=== PATIENT | female | born 1965 | race American Indian/Alaskan Native ===

== ENCOUNTER 2019-10-09 12:05 | Emergency (ER) | payer OTHER ==
[~2019-10-09] VITALS: Ht 154.9 cm; Wt 99.8 kg
[~2019-10-09 12:05] MED LIST: ALBU90OI INH; BENZ100A PO; CYCL10 PO; DEXA2 PO; Dexamethasone4 MG PO; GUAI120S1 PO; HYDACE10B PO; HYDACE5 PO; HYDR1TAB94 PO; LEVSOD100; LEVSOD137 PO; LEVSOD150; MIGRAINE RELIE1 EACH PO; NAPR500 PO; Norco 5-325 Ta1 EACH PO; OMEP40CA12 PO; OXYACE5T PO; PRED10 PO; PROM25 PO; RXCODACET PO; SULTRIDS PO; Synthroid175 MCG PO; TRAM50 PO; TRAZ100 PO
[2019-10-09] MEDS ORDERED: LIDO700A20 TOP (13:15)
[2019-10-09] MEDS ORDERED: Robaxin-750750 MG PO (13:15)
== END 2019-10-09 13:22 | disposition home or self-care (01) ==
LOC: ER 12:05
DX: M54.9 Dorsalgia, unspecified (principal); E03.9 Hypothyroidism, unspecified; Z87.891 Personal history of nicotine dependence; Z88.0 Allergy status to penicillin; Z88.8 Allergy status to other drugs, medicaments and biological substances; Z79.899 Other long term (current) drug therapy; Z79.82 Long term (current) use of aspirin
CPT/HCPCS: 99283

== ENCOUNTER 2019-12-06 17:59 | Emergency (ER) | payer OTHER ==
[~2019-12-06] VITALS: Ht 157.5 cm; Wt 85.3 kg
[~2019-12-06 17:59] MED LIST changes: +LIDO700A20 TOP; +Robaxin-750750 MG PO
[2019-12-06 18:51] LABS: BASOPHILS ABSOLUTE AUTO 0.09 K/mm3 (0.00-0.23); BASOPHILS PERCENT AUTO 1 % (0-2); EOSINOPHILS ABSOLUTE AUTO 0.23 K/mm3 (0.00-0.68); EOSINOPHILS PERCENT AUTO 2 % (0-6); Hematocrit 37.9 % (33.0-51.0); Hemoglobin 12.4 g/dL (11.5-16.0); IMMATURE GRAN ABSOLUTE AUTO 0.14 K/mm3 (0.00-0.10); IMMATURE GRAN PERCENT AUTO 1 % (0-1); LYMPHOCYTES ABSOLUTE AUTO 2.14 K/mm3 (0.84-5.20); LYMPHOCYTES PERCENT AUTO 18 % (21-46); MONOCYTES ABSOLUTE AUTO 0.39 K/mm3 (0.16-1.47); MONOCYTES PERCENT AUTO 3 % (4-13); Mean Corpuscular HGB 32.1 pg (26.0-34.0); Mean Corpuscular HGB Conc 32.7 g/dL (31.5-36.5); Mean Corpuscular Volume 98 fL (80-100); Mean Platelet Volume 9.2 fL (9.1-12.4); NEUTROPHILS ABSOLUTE AUTO 9.04 K/mm3 (1.96-9.15); NEUTROPHILS PERCENT AUTO 75 % (41-73); Platelet Count 284 K/mm3 (150-400); RDW Coefficient Variation 14.6 % (11.7-14.2); Red Blood Cell Count 3.86 M/mm3 (3.80-5.20); White Blood Cell Count 12.03 K/mm3 (4.00-11.30)
[2019-12-06 19:09] LABS: Albumin, Blood 3.7 g/dL (3.4-5.0); Bilirubin, Total 0.2 mg/dL (0.1-1.0); Bun/Creatinine Ratio 11.3 (12.0-20.0); Calcium, Blood 8.8 mg/dL (8.5-10.1); Creatinine, Blood 1.24 mg/dL (0.40-1.00); Globulin, Blood 3.6 g/dL (2.2-4.0); Potassium, Blood 3.8 mmol/L (3.5-5.5); Total Protein, Blood 7.3 g/dL (6.4-8.2)
[2019-12-06] MEDS ORDERED: SYNTHROID150 MC1 PO (20:53)
== END 2019-12-06 21:18 | disposition home or self-care (01) ==
LOC: ER 17:59
PROVIDERS: Physician Assistant
DX: E03.9 Hypothyroidism, unspecified (principal)
CPT/HCPCS: 36415; 80053; 83880; 85025; 99283

== ENCOUNTER 2019-12-26 10:02 | Emergency (ER) | payer OTHER ==
[~2019-12-26] VITALS: Ht 154.9 cm; Wt 108.0 kg
[~2019-12-26 10:02] MED LIST changes: +SYNTHROID150 MC1 PO
[2019-12-26] MEDS ORDERED: SYNTHROID150 MC1 PO (10:51)
[2019-12-26] MEDS ORDERED: TIZA4 PO (10:53)
[2019-12-26 11:01] LABS: BASOPHILS ABSOLUTE AUTO 0.07 K/mm3 (0.00-0.23); BASOPHILS PERCENT AUTO 1 % (0-2); EOSINOPHILS ABSOLUTE AUTO 0.11 K/mm3 (0.00-0.68); EOSINOPHILS PERCENT AUTO 1 % (0-6); Hematocrit 39.8 % (33.0-51.0); Hemoglobin 12.9 g/dL (11.5-16.0); IMMATURE GRAN ABSOLUTE AUTO 0.05 K/mm3 (0.00-0.10); IMMATURE GRAN PERCENT AUTO 1 % (0-1); LYMPHOCYTES ABSOLUTE AUTO 1.51 K/mm3 (0.84-5.20); LYMPHOCYTES PERCENT AUTO 18 % (21-46); MONOCYTES ABSOLUTE AUTO 0.54 K/mm3 (0.16-1.47); MONOCYTES PERCENT AUTO 7 % (4-13); Mean Corpuscular HGB 32.6 pg (26.0-34.0); Mean Corpuscular HGB Conc 32.4 g/dL (31.5-36.5); Mean Corpuscular Volume 101 fL (80-100); Mean Platelet Volume 9.2 fL (9.1-12.4); NEUTROPHILS ABSOLUTE AUTO 5.99 K/mm3 (1.96-9.15); NEUTROPHILS PERCENT AUTO 73 % (41-73); Platelet Count 286 K/mm3 (150-400); RDW Coefficient Variation 14.6 % (11.7-14.2); RDW Standard Deviation 54.6 fL (35.1-46.3); Red Blood Cell Count 3.96 M/mm3 (3.80-5.20); White Blood Cell Count 8.27 K/mm3 (4.00-11.30)
[2019-12-26 11:24] LABS: Alanine Aminotransfer (ALT/SGP 21 U/L (12-78); Albumin, Blood 3.9 g/dL (3.4-5.0); Albumin/Globulin Ratio 1.1 (0.8-1.8); Alk Phos 89 U/L (50-136); Anion Gap 5 mmol/L (6-16); Aspartate Aminotrans (AST/SGOT 5 U/L (12-37); Bilirubin, Total 0.3 mg/dL (0.1-1.0); Blood Urea Nitrogen 13 mg/dL (8-24); Bun/Creatinine Ratio 16.6 (12.0-20.0); CO2, Blood 29 mmol/L (21-32); Calcium, Blood 8.9 mg/dL (8.5-10.1); Chloride, Blood 106 mmol/L (98-108); Creatinine, Blood 0.78 mg/dL (0.40-1.00); Globulin, Blood 3.7 g/dL (2.2-4.0); Glomerular Filtration Rate >60 (60-); Glucose, Blood 105 mg/dL (70-99); Potassium, Blood 3.9 mmol/L (3.5-5.5); Sodium, Blood 140 mmol/L (136-145); Total Protein, Blood 7.6 g/dL (6.4-8.2); Troponin I <0.015 ng/mL (0.000-0.040)
== END 2019-12-26 13:35 | disposition home or self-care (01) ==
LOC: ER 10:02
PROVIDERS: Emergency Medicine
DX: M54.16 Radiculopathy, lumbar region (principal); R60.0 Localized edema; E03.9 Hypothyroidism, unspecified; Z88.0 Allergy status to penicillin; Z88.8 Allergy status to other drugs, medicaments and biological substances; Z88.5 Allergy status to narcotic agent; Z79.899 Other long term (current) drug therapy; Z87.891 Personal history of nicotine dependence
CPT/HCPCS: 36415; 71046; 72100; 72170; 80053; 83880; 84484; 85025; 93005; 93010; 96374; 99284-25; J1940

== ENCOUNTER 2020-01-13 15:24 | Emergency (ER) | payer OTHER ==
[~2020-01-13] VITALS: Ht 154.9 cm; Wt 93.0 kg
[~2020-01-13 15:24] MED LIST changes: +TIZA4 PO
[2020-01-13 16:25] LABS: BASOPHILS ABSOLUTE AUTO 0.05 K/mm3 (0.00-0.23); BASOPHILS PERCENT AUTO 1 % (0-2); EOSINOPHILS ABSOLUTE AUTO 0.13 K/mm3 (0.00-0.68); EOSINOPHILS PERCENT AUTO 2 % (0-6); Hematocrit 34.6 % (33.0-51.0); Hemoglobin 11.1 g/dL (11.5-16.0); IMMATURE GRAN ABSOLUTE AUTO 0.03 K/mm3 (0.00-0.10); IMMATURE GRAN PERCENT AUTO 0 % (0-1); LYMPHOCYTES ABSOLUTE AUTO 1.64 K/mm3 (0.84-5.20); LYMPHOCYTES PERCENT AUTO 20 % (21-46); MONOCYTES ABSOLUTE AUTO 0.52 K/mm3 (0.16-1.47); MONOCYTES PERCENT AUTO 6 % (4-13); Mean Corpuscular HGB 32.5 pg (26.0-34.0); Mean Corpuscular HGB Conc 32.1 g/dL (31.5-36.5); Mean Corpuscular Volume 101 fL (80-100); Mean Platelet Volume 9.3 fL (9.1-12.4); NEUTROPHILS ABSOLUTE AUTO 5.92 K/mm3 (1.96-9.15); NEUTROPHILS PERCENT AUTO 71 % (41-73); Platelet Count 324 K/mm3 (150-400); RDW Coefficient Variation 13.5 % (11.7-14.2); RDW Standard Deviation 50.4 fL (35.1-46.3); Red Blood Cell Count 3.42 M/mm3 (3.80-5.20); White Blood Cell Count 8.29 K/mm3 (4.00-11.30)
[2020-01-13 17:14] LABS: Alanine Aminotransfer (ALT/SGP 24 U/L (12-78); Albumin, Blood 3.3 g/dL (3.4-5.0); Alk Phos 88 U/L (50-136); Anion Gap 1 mmol/L (6-16); Aspartate Aminotrans (AST/SGOT 4 U/L (12-37); Bilirubin, Total 0.2 mg/dL (0.1-1.0); Blood Urea Nitrogen 13 mg/dL (8-24); Bun/Creatinine Ratio 19.8 (12.0-20.0); CO2, Blood 31 mmol/L (21-32); Calcium, Blood 8.6 mg/dL (8.5-10.1); Chloride, Blood 106 mmol/L (98-108); Creatinine, Blood 0.66 mg/dL (0.40-1.00); Globulin, Blood 3.4 g/dL (2.2-4.0); Glomerular Filtration Rate >60 (60-); Glucose, Blood 136 mg/dL (70-99); Sodium, Blood 138 mmol/L (136-145); Total Protein, Blood 6.7 g/dL (6.4-8.2)
[2020-01-13] MEDS ORDERED: DYAZIDE 37.5-21 EACH PO (20:08)
== END 2020-01-13 20:35 | disposition home or self-care (01) ==
LOC: ER 15:24
PROVIDERS: Physician Assistant
DX: R60.0 Localized edema (principal); E03.9 Hypothyroidism, unspecified
CPT/HCPCS: 36415; 80053; 83880; 85025; 93005; 93010; 93970; 96374; 99284-25; J1940

== ENCOUNTER 2021-05-19 21:30 | Emergency (ER) | payer OTHER ==
[~2021-05-19] VITALS: Ht 154.9 cm; Wt 72.6 kg
[~2021-05-19 21:30] MED LIST changes: +DYAZIDE 37.5-21 EACH PO
[2021-05-19] MEDS ORDERED: DOXY100 PO (23:29)
== END 2021-05-19 23:37 | disposition home or self-care (01) ==
LOC: ER 21:30
DX: S91.311A Laceration without foreign body, right foot, initial encounter (principal); E03.9 Hypothyroidism, unspecified; F17.210 Nicotine dependence, cigarettes, uncomplicated; Z23 Encounter for immunization; Z79.899 Other long term (current) drug therapy; Z88.0 Allergy status to penicillin; Z88.8 Allergy status to other drugs, medicaments and biological substances; Z88.5 Allergy status to narcotic agent; W22.8XXA Striking against or struck by other objects, initial encounter
CPT/HCPCS: 12001; 73630; 90471; 90714; 99283-25; A9270

== ENCOUNTER 2021-05-21 15:27 | Inpatient (IN) | payer OTHER ==
[~2021-05-21] VITALS: Ht 154.9 cm; Wt 79.2 kg
[~2021-05-21 15:27] MED LIST changes: +DOXY100 PO
[2021-05-21 16:39] LABS: BASOPHILS ABSOLUTE AUTO 0.07 K/mm3 (0.00-0.23); BASOPHILS PERCENT AUTO 1 % (0-2); EOSINOPHILS ABSOLUTE AUTO 0.18 K/mm3 (0.00-0.68); EOSINOPHILS PERCENT AUTO 1 % (0-6); Hematocrit 40.2 % (33.0-51.0); Hemoglobin 13.3 g/dL (11.5-16.0); IMMATURE GRAN ABSOLUTE AUTO 0.05 K/mm3 (0.00-0.10); IMMATURE GRAN PERCENT AUTO 0 % (0-1); LYMPHOCYTES ABSOLUTE AUTO 2.07 K/mm3 (0.84-5.20); LYMPHOCYTES PERCENT AUTO 16 % (21-46); MONOCYTES ABSOLUTE AUTO 0.75 K/mm3 (0.16-1.47); MONOCYTES PERCENT AUTO 6 % (4-13); Mean Corpuscular HGB 30.9 pg (26.0-34.0); Mean Corpuscular HGB Conc 33.1 g/dL (31.5-36.5); Mean Corpuscular Volume 94 fL (80-100); Mean Platelet Volume 9.5 fL (9.1-12.4); NEUTROPHILS ABSOLUTE AUTO 10.24 K/mm3 (1.96-9.15); NEUTROPHILS PERCENT AUTO 77 % (41-73); Platelet Count 320 K/mm3 (150-400); RDW Standard Deviation 44.3 fL (35.1-46.3); White Blood Cell Count 13.36 K/mm3 (4.00-11.30)
[2021-05-21 17:01] LABS: Anion Gap 4 mmol/L (6-16); Blood Urea Nitrogen 18 mg/dL (8-24); Bun/Creatinine Ratio 23.5 (12.0-20.0); CO2, Blood 30 mmol/L (21-32); Calcium, Blood 9.2 mg/dL (8.5-10.1); Chloride, Blood 102 mmol/L (98-108); Creatinine, Blood 0.77 mg/dL (0.40-1.00); Glomerular Filtration Rate >60 (60-); Glucose, Blood 128 mg/dL (70-99); Potassium, Blood 3.8 mmol/L (3.5-5.5); Sodium, Blood 136 mmol/L (136-145)
[2021-05-21] MEDS ORDERED: K-Dur 20 meq T20 MEQ PO (17:40)
--- NOTE | 2021-05-21 19:52 | NUR ---
REPORT RECIEVED FROM DMITRIY BERNARDO RN AND AWAITING PT T/F TO ROOM 342.
--- NOTE | 2021-05-21 20:05 | NUR ---
T/F: PT T/F TO ROOM 342 AT 1958 VIA W/C. SHE'S A/OX4 W/CALL LIGHT IN REACH AND WAS ORIENTED TO ROOM AND CALL SYSTEM. PLAN TO MEDICATE FOR PAIN PRN PER EMAR. 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 REGION HAS BEEN DEMARCATED AND PHOTO DOCUMENTATION COMPLETED. PLAN TO ATTEMPT WOUND CX IF DRAINAGE OBSERVED. IV ABX TO BE RECIEVED AND WILL PROVIDE T/F ASSIST FOR TOILETING PRN.
[2021-05-21] MEDS ORDERED: TRAZ150T57 PO (20:49)
--- NOTE | 2021-05-21 21:30 | NUR ---
WILL ENSURE DAY RN IS AWARE TO CALL PODIATRY CX.
--- NOTE | 2021-05-22 04:50 | NUR ---
SUMMARY: A/OX4, PLEASANT AND COOPERATIVE W/CARE AND CALLS APPROPRIATELY TO SPECIFY NEEDS. R.LATERAL MALLEOULUS REMAINS SWOLLEN, HOT AND RED AT LACERATION AND SUTURE SITE. CONSENT OBTAINED AND PHOTOS TAKEN. WOUND EDGES ARE WELL APPROXIMATED W/O ANY EXUDATE OR DRAINAGE OBSERVED SO CULTURE WAS UNABLE TO BE OBTAINED. IV ABX RECIEVED. ROXICODONE PROVIDED FOR IMPROVED PAIN CONTROL. 1PA PROVIDED FOR PIVOT T/F TO BSC D/T R.ANKLE PAIN CAUSING LIMITED ROM AND PARTIAL WT.BEARING ON R.FOOT. PODIATRY CX NEEDS AMBROCIO TO THIS AM, WILL ENSURE DAY STAFF ARE AWARE. NO ACUTE CHANGES, VSS/AFEBRILE. WCTM/REPORT TO DAY RN.
[2021-05-22 05:23] LABS: BASOPHILS ABSOLUTE AUTO 0.08 K/mm3 (0.00-0.23); BASOPHILS PERCENT AUTO 1 % (0-2); EOSINOPHILS PERCENT AUTO 2 % (0-6); Hematocrit 40.1 % (33.0-51.0); Hemoglobin 13.1 g/dL (11.5-16.0); IMMATURE GRAN ABSOLUTE AUTO 0.03 K/mm3 (0.00-0.10); IMMATURE GRAN PERCENT AUTO 0 % (0-1); LYMPHOCYTES ABSOLUTE AUTO 1.93 K/mm3 (0.84-5.20); LYMPHOCYTES PERCENT AUTO 17 % (21-46); MONOCYTES ABSOLUTE AUTO 0.67 K/mm3 (0.16-1.47); MONOCYTES PERCENT AUTO 6 % (4-13); Mean Corpuscular HGB 30.7 pg (26.0-34.0); Mean Corpuscular HGB Conc 32.7 g/dL (31.5-36.5); Mean Corpuscular Volume 94 fL (80-100); Mean Platelet Volume 9.5 fL (9.1-12.4); NEUTROPHILS ABSOLUTE AUTO 8.43 K/mm3 (1.96-9.15); NEUTROPHILS PERCENT AUTO 74 % (41-73); Platelet Count 308 K/mm3 (150-400); RDW Coefficient Variation 13.1 % (11.7-14.2); Red Blood Cell Count 4.27 M/mm3 (3.80-5.20); White Blood Cell Count 11.34 K/mm3 (4.00-11.30)
[2021-05-22 05:54] LABS: Anion Gap 3 mmol/L (6-16); Blood Urea Nitrogen 19 mg/dL (8-24); CO2, Blood 31 mmol/L (21-32); Calcium, Blood 8.5 mg/dL (8.5-10.1); Chloride, Blood 103 mmol/L (98-108); Creatinine, Blood 0.83 mg/dL (0.40-1.00); Glomerular Filtration Rate >60 (60-); Glucose, Blood 116 mg/dL (70-99); Potassium, Blood 3.6 mmol/L (3.5-5.5); Sodium, Blood 137 mmol/L (136-145)
--- NOTE | 2021-05-22 07:10 | NUR ---
ASSUMED CARE: PT RESTING IN BED AT THIS TIME. NO ACUTE NEEDS OR CONCERNS.
--- NOTE | 2021-05-22 09:10 | NUR ---
DR ARENAS CAME TO SEE PT. DR HAS PLACED ORDER THAT NO DVT PROPHYLAXIS IS OK AT THIS TIME DUE TO LOCATION OF INJURY AND POSSIBLE SURGERY. DR AWARE THAT DR BEASLEY CONSULT HAS BEEN CALLED BUT DR SAYS HE MAY NOT SEE PT UNTIL TOMORROW.
--- NOTE | 2021-05-22 10:17 | NUR ---
PT FRUSTRATED THAT DR BEASLEY IS UNAVAILABLE AND MAY NOT SEE HER UNTIL TOMORROW SINCE THAT IS WHAT SHE IS WAITING FOR. WANTED TO GO OUTSIDE TO SMOKE AND WAS MADE AWARE OF SMOKING POLICY AND THAT SHE WOULD BE CONSIDERED AMA IF SHE LEFT CAMPUS. CALL TO DR ARENAS TO DISCUSS THIS AND UPDATED HER TO WHAT PLAN IS. PT STATES NICOTINE PATCHES MAKE HER SICK AND FELT THAT GUM WOULD BE IMPOSSIBLE DUE TO ONLY WEARING TOP DENTURES. EXPLAINED THAT SHE HAS TO COMPRESS GUM TO BREAK LIQUID OUT AND PT STATES SHE WILL TRY IT. DR SILVERIO PT DISCUSSING AMA
--- NOTE | 2021-05-22 15:38 | NUR ---
PT CALLED RN TO BEDSIDE, CRYING, STATING THAT HER FOOT WAS THROBBING AND WOKE HER UP FROM HER NAP. OFFERED PT TYLENOL BUT SHE REFUSED BECAUSE IT HURTS HER STOMACH. PROVIDED WITH PILLOW FOR ELEVATION AND ICE. CALLED DR ARENAS AND GOT FREQUENCY OF PAIN MEDS CHANGED. DR AWARE THAT SWELLING IS WORSE ON FOOT.
--- NOTE | 2021-05-22 17:09 | NUR ---
SUMMARY PT RESTING QUIETLY IN BED, WAKES EASILY, MED PER EMAR FOR PAIN, R FOOT/ANKLE WITH AN ICE PACK, PODIATRY TO SEE THE PT TOMORROW, PT INDEPENDENT IN THE ROOM, VSS, WILL CONTINUE TO MONITOR
--- NOTE | 2021-05-23 03:43 | NUR ---
SUMMARY: PT A/OX4, SPECIFIES NEEDS AND IS PLEASANT/COOPERATIVE W/CARE. SHE PIVOT T/F'S SELF TO BSC BUT KNOWS LIMITATIONS AND CALLS FOR ASSIST TO TOILET PRN. IV ABX BEING RECIEVED FOR INFECTED R.ANKLE LACERATION. SUTURE LINE IS WELL APPROXIMATED AND MEPILEX DX REMAINS C/D/I. SWELLING AND REDNESS SEEMS IMPROVED FROM PREVIOUSLY DEMARCATED REGION BUT PAIN PERSISTS. SHE BECAME TEARFUL W/REPORT OF "15/10" THROBBING AFTER ABULATION, PRN ROXICODONE RECIEVED X2 DOSES FOR TOLERABLE RELIEF THIS SHIFT. PODIATRY CX WAS COMPLETED ON DAY SHIFT W/PLAN FOR CONT'D MEDICAL MANAGEMENT AND NO SURGICAL INTERVENTION REQUIRED AT THIS TIME. NO ACUTE CHANGES, VSS/AFEBRILE. WCTM/REPORT TO DAY RN.
[2021-05-23 09:22] LABS: BASOPHILS ABSOLUTE AUTO 0.08 K/mm3 (0.00-0.23); BASOPHILS PERCENT AUTO 1 % (0-2); EOSINOPHILS PERCENT AUTO 2 % (0-6); Hematocrit 38.3 % (33.0-51.0); Hemoglobin 12.5 g/dL (11.5-16.0); IMMATURE GRAN ABSOLUTE AUTO 0.04 K/mm3 (0.00-0.10); IMMATURE GRAN PERCENT AUTO 0 % (0-1); LYMPHOCYTES ABSOLUTE AUTO 1.39 K/mm3 (0.84-5.20); LYMPHOCYTES PERCENT AUTO 15 % (21-46); MONOCYTES ABSOLUTE AUTO 0.57 K/mm3 (0.16-1.47); MONOCYTES PERCENT AUTO 6 % (4-13); Mean Corpuscular HGB 30.9 pg (26.0-34.0); Mean Corpuscular HGB Conc 32.6 g/dL (31.5-36.5); Mean Corpuscular Volume 95 fL (80-100); Mean Platelet Volume 9.7 fL (9.1-12.4); NEUTROPHILS ABSOLUTE AUTO 6.81 K/mm3 (1.96-9.15); NEUTROPHILS PERCENT AUTO 75 % (41-73); Platelet Count 305 K/mm3 (150-400); RDW Standard Deviation 44.6 fL (35.1-46.3); Red Blood Cell Count 4.05 M/mm3 (3.80-5.20); White Blood Cell Count 9.09 K/mm3 (4.00-11.30)
[2021-05-23 09:36] LABS: Anion Gap 3 mmol/L (6-16); Blood Urea Nitrogen 16 mg/dL (8-24); Bun/Creatinine Ratio 21.3 (12.0-20.0); CO2, Blood 33 mmol/L (21-32); Calcium, Blood 8.5 mg/dL (8.5-10.1); Chloride, Blood 102 mmol/L (98-108); Creatinine, Blood 0.75 mg/dL (0.40-1.00); Glomerular Filtration Rate >60 (60-); Glucose, Blood 139 mg/dL (70-99); Potassium, Blood 3.8 mmol/L (3.5-5.5); Sodium, Blood 138 mmol/L (136-145); Thyroxine (T4) 9.9 ug/dL (4.8-13.9); Vancomycin, Trough 14.2 ug/mL (5.0-10.0)
[2021-05-23] MEDS ORDERED: CLIN150 PO (11:49)
[2021-05-23] MEDS ORDERED: DYAZIDE 37.5-21 EACH PO (11:49)
[2021-05-23] MEDS ORDERED: ROXICODONE5 MG PO (11:49)
--- NOTE | 2021-05-23 13:41 | NUR ---
DISCHARGE SUMMARY- DISCHARGE INSTRUCTIONS REVIEWED WITH PT. IV DC'D INTACT. DRESSING CHANGED TO RIGHT ANKLE PRIOR TO DISCHARGE AND DRESSING SUPPLIES SENT WITH PT. RX FAXED TO [facility] AND HARD SCRIPT FOR OXY GIVEN TO PT. [facility]LL DROPPED OFF WALKER TO PT. PT DC'D HOME WITH FRIEND AT 1343 ESCORTED OUT VIA W/C.
== END 2021-05-23 14:23 | disposition home or self-care (01) | DRG 863 ==
LOC: ER 15:27 → MEDS 19:02
PROVIDERS: Physician Assistant; ADMIT Internal Medicine
DX: T81.49XA Infection following a procedure, other surgical site, initial encounter (principal); L03.115 Cellulitis of right lower limb; E03.9 Hypothyroidism, unspecified; L40.9 Psoriasis, unspecified; F17.210 Nicotine dependence, cigarettes, uncomplicated; I10 Essential (primary) hypertension; S91.311D Laceration without foreign body, right foot, subsequent encounter; Z88.5 Allergy status to narcotic agent; Z88.0 Allergy status to penicillin; Z88.8 Allergy status to other drugs, medicaments and biological substances; Z79.899 Other long term (current) drug therapy
CPT/HCPCS: 36415; 76882; 80048; 80202; 84436; 84443; 85025; 87070; 87075; 87205; 96365; 99285-25; A9270; J3370; J7050

== ENCOUNTER 2021-05-30 00:57 | Day surgery (SDC) | payer OTHER ==
[~2021-05-30 00:57] MED LIST changes: +CLIN150 PO; +K-Dur 20 meq T20 MEQ PO; +ROXICODONE5 MG PO; +TRAZ150T57 PO
== END 2021-05-30 23:53 | disposition home or self-care (01) ==
LOC: WOUND 00:57
DX: S91.001D Unspecified open wound, right ankle, subsequent encounter (principal); X58.XXXD Exposure to other specified factors, subsequent encounter; L03.115 Cellulitis of right lower limb
CPT/HCPCS: 87070; 87075; 87205; A9270

== ENCOUNTER 2021-06-04 03:44 | Day surgery (SDC) | payer OTHER | END 2021-06-04 23:00 | disposition home or self-care (01) | LOC: WOUND 03:44 | DX: S91.001D Unspecified open wound, right ankle, subsequent encounter (principal); X58.XXXD Exposure to other specified factors, subsequent encounter; L03.115 Cellulitis of right lower limb | CPT/HCPCS: A9270 ==

== ENCOUNTER 2021-06-11 01:34 | Day surgery (SDC) | payer OTHER | END 2021-06-11 23:04 | disposition home or self-care (01) | LOC: WOUND 01:34 | DX: S91.001A Unspecified open wound, right ankle, initial encounter (principal); L03.115 Cellulitis of right lower limb; W13.8XXA Fall from, out of or through other building or structure, initial encounter; Y92.828 Other wilderness area as the place of occurrence of the external cause | CPT/HCPCS: A9270 ==

== ENCOUNTER 2021-06-18 02:52 | Day surgery (SDC) | payer OTHER | END 2021-06-18 23:50 | disposition home or self-care (01) | LOC: WOUND 02:52 | DX: S91.001D Unspecified open wound, right ankle, subsequent encounter (principal); X58.XXXD Exposure to other specified factors, subsequent encounter; L03.115 Cellulitis of right lower limb | CPT/HCPCS: A9270 ==

== ENCOUNTER 2021-06-25 01:45 | Day surgery (SDC) | payer OTHER | END 2021-06-25 23:07 | disposition home or self-care (01) | LOC: WOUND 01:45 | DX: S91.001D Unspecified open wound, right ankle, subsequent encounter (principal); X58.XXXD Exposure to other specified factors, subsequent encounter; Z88.0 Allergy status to penicillin; Z88.6 Allergy status to analgesic agent; Z88.5 Allergy status to narcotic agent | CPT/HCPCS: A9270 ==

== ENCOUNTER 2021-07-02 00:02 | Day surgery (SDC) | payer OTHER | END 2021-07-02 23:18 | disposition home or self-care (01) | LOC: WOUND 00:02 | DX: L97.315 Non-pressure chronic ulcer of right ankle with muscle involvement without evidence of necrosis (principal); L03.115 Cellulitis of right lower limb; Z88.6 Allergy status to analgesic agent; Z88.8 Allergy status to other drugs, medicaments and biological substances; Z88.0 Allergy status to penicillin; Z88.5 Allergy status to narcotic agent | CPT/HCPCS: A9270 ==

== ENCOUNTER 2021-07-05 08:00 | Day surgery (SDC) | payer OTHER | END 2021-07-05 23:59 | disposition home or self-care (01) | LOC: WOUND 08:00 | DX: L97.315 Non-pressure chronic ulcer of right ankle with muscle involvement without evidence of necrosis (principal) ==

== ENCOUNTER 2021-07-09 01:59 | Day surgery (SDC) | payer OTHER | END 2021-07-09 12:00 | disposition home or self-care (01) | LOC: WOUND 01:59 | DX: L97.315 Non-pressure chronic ulcer of right ankle with muscle involvement without evidence of necrosis (principal); Z88.5 Allergy status to narcotic agent; Z88.0 Allergy status to penicillin; Z88.8 Allergy status to other drugs, medicaments and biological substances | CPT/HCPCS: A9270 ==

== ENCOUNTER 2021-07-12 04:06 | Day surgery (SDC) | payer OTHER | END 2021-07-12 23:36 | disposition home or self-care (01) | LOC: WOUND 04:06 | DX: L97.315 Non-pressure chronic ulcer of right ankle with muscle involvement without evidence of necrosis (principal) ==

== ENCOUNTER 2021-07-16 02:05 | Day surgery (SDC) | payer OTHER | END 2021-07-16 23:51 | disposition home or self-care (01) | LOC: WOUND 02:05 | DX: L97.312 Non-pressure chronic ulcer of right ankle with fat layer exposed (principal) | CPT/HCPCS: A9270 ==

== ENCOUNTER 2021-07-19 02:02 | Day surgery (SDC) | payer OTHER | END 2021-07-19 23:36 | disposition home or self-care (01) | LOC: WOUND 02:02 | DX: L97.315 Non-pressure chronic ulcer of right ankle with muscle involvement without evidence of necrosis (principal) ==

== ENCOUNTER 2021-07-23 03:02 | Day surgery (SDC) | payer OTHER | END 2021-07-23 23:22 | disposition home or self-care (01) | LOC: WOUND 03:02 | DX: S91.011D Laceration without foreign body, right ankle, subsequent encounter (principal); W17.89XD Other fall from one level to another, subsequent encounter; W22.8XXD Striking against or struck by other objects, subsequent encounter | CPT/HCPCS: A9270; G0463 ==

== ENCOUNTER 2021-08-06 01:14 | Day surgery (SDC) | payer OTHER | END 2021-08-06 23:44 | disposition home or self-care (01) | LOC: WOUND 01:14 | DX: L97.315 Non-pressure chronic ulcer of right ankle with muscle involvement without evidence of necrosis (principal); Z88.6 Allergy status to analgesic agent; Z88.5 Allergy status to narcotic agent; Z88.0 Allergy status to penicillin; Z88.8 Allergy status to other drugs, medicaments and biological substances | CPT/HCPCS: A9270; G0463 ==

== ENCOUNTER 2021-08-20 05:55 | Day surgery (SDC) | payer OTHER | END 2021-08-20 23:51 | disposition home or self-care (01) | LOC: WOUND 05:55 | DX: L97.315 Non-pressure chronic ulcer of right ankle with muscle involvement without evidence of necrosis (principal) | CPT/HCPCS: G0463 ==

== ENCOUNTER 2021-09-03 03:07 | Day surgery (SDC) | payer OTHER | END 2021-09-03 22:58 | disposition home or self-care (01) | LOC: WOUND 03:07 | DX: L97.312 Non-pressure chronic ulcer of right ankle with fat layer exposed (principal) | CPT/HCPCS: G0463 ==

== ENCOUNTER → 2023-06-19 | Outpatient (CLI) | payer OTHER | END | disposition home or self-care (01) | LOC: LAB SHORT 16:10 → LAB 16:10 | DX: R10.13 Epigastric pain (principal) | CPT/HCPCS: 87338 ==

== ENCOUNTER 2025-09-15 23:33 | Emergency (ER) | payer OTHER ==
[~2025-09-15] VITALS: Ht 154.9 cm; Wt 90.7 kg
[~2025-09-15 23:33] MED LIST changes: +DELTASONE20 MG PO
[2025-09-16 00:10] VITALS: BP 125/31
[2025-09-16] MEDS ORDERED: OXAYDO5 M2 PO (00:59)
== END 2025-09-16 01:24 | disposition home or self-care (01) ==
LOC: ER 23:33
DX: M25.511 Pain in right shoulder (principal); I10 Essential (primary) hypertension; F17.210 Nicotine dependence, cigarettes, uncomplicated; Z88.0 Allergy status to penicillin; Z88.8 Allergy status to other drugs, medicaments and biological substances; Z79.899 Other long term (current) drug therapy
CPT/HCPCS: 73030; 99283-25; A9270